=== PATIENT | female | born 2000 | race Hispanic/Latino ===

== ENCOUNTER 2020-12-25 14:51 | Outpatient (CLI) | payer MEDICAID, SELFPAY ==
--- NOTE | ~2020-12-25 | US_ITS ---
EXAMINATION: US OB <= 14 weeks fetus DATE: 12/25/2020 15:30 INDICATION: Encounter for supervision of normal first trimester TECHNIQUE: Real-time pelvic transabdominal and transvaginal ultrasound was performed. COMPARISON: None. FINDINGS: The uterus measures 12.8 x 6.2 x 8.7 cm. There is an intrauterine gestational sac. A yolk sac is identified. heart motion is identified measuring 169 beats per minute (bpm) by M-mode Do ppler. The crown rump length measures 3.7 cm , which correlates with an estimated gestational a ge of 10 weeks and 3 day(s) (+/-) 5 day(s). The ovaries are not visualized however no adnexal abnormality is seen. There is no free fluid in the pelvis. IMPRESSION: 1. Live intrauterine with an estimated gestational age of 10 weeks and 3 day(s) (+/-) 5 day (s) and an estimated delivery date of 07/20/2021. Reviewed, dictated and finalized at location A. IMPRESSION: 1. Live intrauterine with an estimated gestational age of 10 weeks an d 3 day(s) (+/-) 5 day(s) and an estimated delivery date of 07/20/2021.
== END 2020-12-25 14:52 | disposition home or self-care (01) ==
PROVIDERS: PCP Registered Nurse; Visit Provider Physician Assistant
DX: Z34.91 Encounter for supervision of normal pregnancy, unspecified, first trimester (principal); Z3A.10 10 weeks gestation of pregnancy
CPT/HCPCS: 76801

== ENCOUNTER 2021-02-23 14:26 | Outpatient (CLI) | payer OTHER, SELFPAY ==
--- NOTE | ~2021-02-23 | US_ITS ---
EXAMINATION: US OB follow up DATE: 02/23/2021 15:02 INDICATION: Encounter for supervision of normal during second trimester. TECHNIQUE: Real-time ultrasound of the pelvis was performed. The interpreting radiologist was not pre sent for the study. COMPARISON: 12/25/2020 FINDINGS: There is a single living fetus in vertex presentation. The placenta is posterior. heart rate i s 157 beats per minute (bpm). The amniotic fluid index is 11.5 cm, which is normal (5th%-95%: 9.0-20 .7 cm at 19 weeks estimated gestational age). The following biometric data were obtained: BPD: 4.4 cm -> 19 weeks 1 days Head circumference: 6.2 cm -> 19 weeks 0 days Abdominal circumference: 14.6 cm -> 20 weeks 0 days Femur length: 3.2 cm -> 19 weeks 6 days These measurements are concordant. Head circumference to abdominal circumference ratio: 1.11 (normal range 1.08-1.26). Estimated weight: 314 g (+/-) 47 g or 11 oz. (+/-) 2 oz. IMPRESSION: 1. Single living fetus in vertex presentation with heart rate of 157 bpm. 2. Normal amniotic fluid index of 11.5 cm. 3. Estimated weight is 88th percentile by Hadlock criteria when 07/20/2021 is used as the estima jose date of delivery (CHRISTELLE). Please correlate with clinical information or earlier ultrasounds for mos t accurate CHRISTELLE. Reviewed, dictated and finalized at location A. IMPRESSION: 1. Single living fetus in vertex presentation with heart rate of 157 bpm. 2. Normal amniotic fluid index of 11.5 cm. 3. Estimated weight is 88th percentile by Hadlock criteria when 07/20/2021 is used as the estimated date of delivery (CHRISTELLE). Please correlate with clinica l information or earlier ultrasounds for most accurate CHRISTELLE.
== END 2021-02-23 14:27 | disposition home or self-care (01) ==
PROVIDERS: PCP Registered Nurse; Visit Provider Physician Assistant
DX: Z34.92 Encounter for supervision of normal pregnancy, unspecified, second trimester (principal); Z3A.00 Weeks of gestation of pregnancy not specified
CPT/HCPCS: 76816

== ENCOUNTER 2021-04-21 10:06 | Outpatient (CLI) | payer OTHER, SELFPAY ==
--- NOTE | ~2021-04-21 | US_ITS ---
EXAMINATION: US OB follow up DATE: 04/21/2021 10:51 INDICATION: Growth assessment. TECHNIQUE: Real-time ultrasound of the pelvis was performed. COMPARISON: Ultrasound 02/23/2021, 12/25/2020 FINDINGS: There is a single living fetus in vertex presentation. The placenta is posterior and fundal. h eart rate is 153 beats per minute (bpm). The amniotic fluid index is 16.7 cm, which is normal. The following biometric data were obtained: Biparietal diameter (BPD): 6.8 cm; head circumference (HC): 26.6 cm; abdominal circumference (AC): 23 .9 cm; femur length (FL): 5.4 cm. These measurements are concordant. Estimated weight is 1221 g +/- 183 g, which correlates with 85th percentile when 07/20/21 is use d as estimated date of delivery. As single measurements, these parameters are each equal to the following estimated gestational ages: BPD: 27 weeks 4 days. HC: 28 weeks 6 days. AC: 28 weeks 1 days. FL: 28 weeks 5 days. estimated gestational age based solely on measurements from this exam is 28 weeks 2 days +/- 2 weeks 0 days. IMPRESSION: 1. Single living fetus in vertex presentation. 2. Estimated weight is 1221 g +/- 183 g, which correlates with 85th percentile when 07/20/21 is used as estimated date of delivery. Reviewed, dictated and finalized at location A. IMPRESSION: 1. Single living fetus in vertex presentation. 2. Estimated weight is 1221 g +/- 183 g, which correlates with 85th perc entile when 07/20/21 is used as estimated date of delivery.
== END 2021-04-21 10:07 | disposition home or self-care (01) ==
PROVIDERS: PCP Registered Nurse; Visit Provider Physician Assistant
DX: Z34.92 Encounter for supervision of normal pregnancy, unspecified, second trimester (principal); Z3A.28 28 weeks gestation of pregnancy
CPT/HCPCS: 76816

== ENCOUNTER 2021-06-08 14:42 | Outpatient (CLI) | payer OTHER, SELFPAY ==
--- NOTE | ~2021-06-08 | US_ITS ---
EXAMINATION: US OB follow up DATE: 06/08/2021 15:21 INDICATION: Growth assessment during third trimester TECHNIQUE: Real-time ultrasound of the pelvis was performed. The interpreting radiologist was not pre sent for the study. COMPARISON: 04/21/2021 and 12/25/2020 FINDINGS: There is a single living fetus in vertex presentation. The placenta is fundal. heart rate is 1 65 beats per minute (bpm). The amniotic fluid index is 14.9 cm, which is normal (5th%-95%: 8.1-24.8 cm at 34 weeks estimated gestational age). The following biometric data were obtained: BPD: 8.4 cm -> 33 weeks 5 days Head circumference: 32.1 cm -> 36 weeks 1 days Abdominal circumference: 32.8 cm -> 36 weeks 5 days Femur length: 7.2 cm -> 36 weeks 4 days These measurements are concordant. Head circumference to abdominal circumference ratio: 0.98 (normal range 0.93-1.08). Estimated weight: 2902 g (+/-) 435 g or 6 lbs. 6 oz. (+/-) 15 oz. IMPRESSION: 1. Single living fetus in vertex presentation with heart rate of 165 bpm. 2. Normal amniotic fluid index of 14.9 cm. 3. Estimated weight is 96th percentile by Hadlock criteria when 07/20/2021 is used as the estima jose date of delivery (CHRISTELLE) based upon earliest ultrasound performed at this institution on 12/25/2020. Please correlate with clinical information or earlier ultrasounds for most accurate CHRISTELLE. Reviewed, dictated and finalized at location A. IMPRESSION: 1. Single living fetus in vertex presentation with heart rate of 165 bpm. 2. Normal amniotic fluid index of 14.9 cm. 3. Estimated weight is 96th percentile by Hadlock criteria when 07/20/2021 is used as the estimated date of delivery (CHRISTELLE) based upon earliest ultrasound performed at this institution on 12/25/2020. Please correlate with clinical info rmation or earlier ultrasounds for most accurate CHRISTELLE.
== END 2021-06-08 14:43 | disposition home or self-care (01) ==
LOC: ANHIMG 14:52
PROVIDERS: PCP Registered Nurse; Visit Provider Physician Assistant
DX: Z34.93 Encounter for supervision of normal pregnancy, unspecified, third trimester (principal); Z3A.00 Weeks of gestation of pregnancy not specified
CPT/HCPCS: 76816

== ENCOUNTER 2021-07-16 18:15 | Inpatient (IN) | payer OTHER, SELFPAY ==
[2021-07-16] VITALS (8 sets, daily range): BP systolic 104–122; BP diastolic 52–72; PULSE 68–75; TEMP 36.3–36.8
[2021-07-16 20:26] LABS: Basophils Percent Auto 0.4 % (0.2-1.2); Eosinophils Absolute Auto 0.1 K/mm3 (0-0.3); Hematocrit 36.7 % (37.0-47.0); Hemoglobin 12.6 g/dL (12.0-15.0); Immature Granulocyte Absolute 0.11 K/mm3 (0.00-0.031); Immature Granulocyte Percent A 1.3 % (0-0.5); Lymphocytes Absolute Auto 2.32 K/mm3 (0.9-3.2); Mean Corpuscular HGB Conc 34.3 g/dl (32-36); Mean Corpuscular Hemoglobin 33.2 pg (26-34); Mean Corpuscular Volume 96.8 fl (80-100); Mean Platelet Volume 11.4 fl (7.4-10.4); Monocytes Absolute Auto 0.8 K/mm3 (0.1-0.6); Monocytes Percent Auto 10.1 % (2.6-8.5); Neutrophils Absolute Auto 4.9 K/mm3 (1.3-6.7); Neutrophils Percent Auto 59.2 % (45.5-73.1); Platelet Count Result 142 k/mm3 (150-375); Red Blood Count 3.79 M/mm3 (4.2-5.4); White Blood Count 8.3 K/mm3 (4.5-10.0)
--- NOTE | 2021-07-16 21:10 | LDADM ---
This patient, Evon Barriga, was admitted to Labor/Delivery/Recovery 103 on 07/16/21 at 18:15. Plans for labor, pain management and were discussed with patient. Patient/family oriented to hospital policies and general routines including ID bracelet, bed and alarms, visiting hours, pain management, procedures, bathroom and other care routines, personal items, smoking policy, room service/diet and guest tray routines, security routines, and visiting hours. Patient/Family are encouraged to report perceived risks to care and to ask questions if they do not understand what they are told or what they should do. See OBIX for further documentation.
--- NOTE | 2021-07-16 22:05 | WPDANESEPP ---
Anes - Eval Pre Procedure Procedure: labor epidural Date/Time: 07/16/21 22:05 Surgeon: malaika Preop Diagnosis: pain during labor Pre Op Diagnosis: Leaking Patient Data Age: 21 Gender: F Height: Weight: 79 kg Last Vital Signs Temp 36.4 C L 07/16/21 21:00 Pulse 71 07/16/21 20:46 BP 104/65 07/16/21 20:46 Allergies Allergy/AdvReac Type Severity Reaction Status Date / Time No Known Allergies Allergy Verified 07/16/21 19:56 Laboratory Tests 07/16/21 07/16/21 07/16/21 20:09 20:09 20:09 WBC 8.3 K/mm3 K/mm3 (4.5-10.0) RBC 3.79 M/mm3 L M/mm3 (4.2-5.4) Hgb 12.6 g/dL g/dL (12.0-15.0) Hct 36.7 % L % (37.0-47.0) MCV 96.8 fl fl (80-100) MCH 33.2 pg pg (26-34) MCHC 34.3 g/dl g/dl (32-36) RDW 14.0 % % (11.5-14.5) Plt Count 142 k/mm3 L k/mm3 (150-375) MPV 11.4 fl H fl (7.4-10.4) Immature Gran % (Auto) 1.3 % H % (0-0.5) Neut % (Auto) 59.2 % % (45.5-73.1) Lymph % (Auto) 28.0 % % (18.3-44.2) [facility] % (Auto) 10.1 % H % (2.6-8.5) Eos % (Auto) 1.0 % % (0-4.4) Baso % (Auto) 0.4 % % (0.2-1.2) Lymph # (Auto) 2.32 K/mm3 K/mm3 (0.9-3.2) [facility] # (Auto) 0.8 K/mm3 H K/mm3 (0.1-0.6) Eos # (Auto) 0.1 K/mm3 K/mm3 (0-0.3) Baso # (Auto) 0.0 K/mm3 K/mm3 (0.0-0.1) Abs Immat Gran (auto) 0.11 K/mm3 H K/mm3 (0.00-0.031) Absolute Neuts (auto) 4.9 K/mm3 K/mm3 (1.3-6.7) Absolute Nucleated RBC 0.0 K/mm3 K/mm3 (0.0-0.012) Nucleated RBC % 0.0 % % (0.0-0.2) RPR Pending Blood Type O Positive Antibody Screen Negative Patient hx anesthesia problems: none Family hx anesthesia problems: none Results Review: All pre-operative results and documents have been reviewed as part of the pre-operative evaluation. 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
[2021-07-17] VITALS (88 sets, daily range): BP systolic 90–145; BP diastolic 50–82; PULSE 32–138; RESP 16–20; TEMP 36.4–37.4; O2SAT 77–100
[2021-07-17] MEDS: AMPICILLIN 2 GM/NS 100 ML 2 GM/100 ML BAG IVPB (00:12)
[2021-07-17] MEDS: LACTATED RINGERS 1,000 ML 125 ML IV CONT ×2 (00:13→05:04)
[2021-07-17] MEDS: OXYTOCIN 30 UNITS/NS 500 ML 30 UNITS/500 ML BAG IV CONT (02:45)
[2021-07-17] MEDS: AMPICILLIN 1 GM/NS 50 ML 1 GM/50 ML BAG IVPB (04:31)
--- NOTE | 2021-07-17 07:59 | PM.IMHP ---
H&P: HPI History of Present Illness Date/Time: 07/17/21 07:59 21 y/o F presenting To [facility] [place] for woman with complaints of spontaneous rupture membranes 24 hours previous to admission presented in the evening on 07/16/21 at 39w4d. spontaneous onset of labor vic every 2 minutes in active labor. Now 7 cm S morning at 6:00 a.m. went to complete by 8:00 a.m.. Now beginning in 2nd stage of labor. complicated by MTHFR and h/o macrosomal infant (following [facility]). Patient had a previous delivery complicated by 2 minute shoulder dystocia at [address] [place] [address] in [place] and only the baby was 9 lb 15 oz. This baby's estimated weight is 6 lb 15 oz. Patient has an epidural anesthesia and is comfortable she desires to breast and bottle feed and she is having a boy circumcision is not desired and she will be using Nexplanon for control. She understands her condition procedure and risks involved she understands the risk of shoulder dystocia and hemorrhage and she agrees to proceed Chief Complaint: spontaneous onset of labor spontaneous rupture membranes term Review of Systems Review of Systems: All systems reviewed & are unremarkable except as noted in HPI and below Constitutional: Constitutional: Reports no additional constitutional complaints Eyes: Eyes: Reports no additional eye complaints ENT: Reports system reviewed and no additional complaints, except as documented Cardiovascular: Cardiovascular: Reports no additional cardiovascular complaints Respiratory: Respiratory: Reports no additional respiratory complaints Gastrointestinal: Gastrointestinal: Reports no additional gastrointestinal complaints Genitourinary: Genitourinary: Reports no additional female genitourinary complaints Musculoskeletal: Musculoskeletal: Reports no additional musculoskeletal complaints Integumentary/Breasts: Skin/Breast: Reports system reviewed and no additional complaints, except as docu Neurologic: Reports system reviewed and no additional complaints, except as documented Psychiatric: Psychiatric: Reports no additional psychiatric complaints Endocrine: Endocrine: Reports no additional endocrine complaints Hematologic/Lymphatic: Hematologic/Lymphatic: Reports no additional hematologic/lymphatic complaints Allergic/Immunologic: Allergic/Immunologic: Reports no additional allergic/immunologic complaints [facility] Past Medical History Medical History Congenital atresia of external auditory canal History of macrosomia in infant in prior , currently History of shoulder dystocia in prior Homozygous MTHFR mutation C677T Surgical History Surgical History (Updated 07/17/21 @ 08:08 by Larry Tran MD) History of cochlear implant left ear 2019 Family History Family History Other Diabetes mellitus Heart disease Hypertension Social History Social History Smoking status: Never smoker Alcohol intake: never Substance use: never Living arrangements: with family Occupation/Education: unemployed Gender identity (if verbalized by the patient): Female Sexual Orientation (if Verbalized by the Patient): Straight or Heterosexual Spiritual care concerns: No Agree to blood products: Yes Meds Home Medications and Allergies Home Medications Medication Instructions Recorded Confirmed Type vit-ferrous sulfat-FA 1 tablet PO DAILY 07/17/21 07/17/21 History [] Allergies Allergy/AdvReac Type Severity Reaction Status Date / Time No Known Allergies Allergy Verified 07/16/21 19:56 Vital Signs Vital Signs - 24 hr 07/16/21 19:00 07/16/21 19:46 07/16/21 20:01 Temperature 97.4 F L Pulse Rate 69 75 Blood Pressure 122/72 119/70 Pulse O
--- NOTE | 2021-07-17 08:04 | P.HPUP_ITS ---
History and Physical Update Update Date/Time: 07/17/21 08:04 History and Physical has been reviewed, including an updated exam of the patient. There are NO changes in the patient's condition. Risks, benefits, and alternatives have been discussed and questions answered. Patient agrees to proceed with procedure. 21 y/o F presenting To [facility] for woman with complaints of spontaneous rupture membranes 24 hours previous to admission presented in the evening on 07/16/21 at 39w4d. spontaneous onset of labor vic every 2 minutes in active labor. Now 7 cm S morning at 6:00 a.m. went to complete by 8:00 a.m.. Now beginning in 2nd stage of labor. complicated by MTHFR and h/o macrosomal infant (following [facility]). Patient had a previous delivery complicated by 2 minute shoulder dystocia at [address] [place] [address] in [place] and only the baby was 9 lb 15 oz. This baby's estimated weight is 6 lb 15 oz. Patient has an epidural anesthesia and is comfortable she desires to breast and bottle feed and she is having a boy circumcision is not desired and she will be using Nexplanon for control. She understands her condition procedure and risks involved she understands the risk of shoulder dystocia and hemorrhage and she agrees to proceed
--- NOTE | 2021-07-17 08:22 | PM.OBPRVD ---
OB - Delivery Note Procedure Delivery date: 07/17/21 Procedure: normal spontaneous vertex vaginal delivery a viable male infant and placenta Intrapartal events: None Induction method: none Delivery monitor: external FHT and external uterine Route of delivery: Episiotomy description: None Laceration Description: None Specimen: Yes ( placenta, cord blood, cord blood gases) Quantitative Blood Loss (ml): 150 Anesthesia type: Epidural Disposition: floor Complications: none Narrative: complete cervical dilation normal spontaneous vertex vaginal delivery a viable male infant over an intact perineum with easy delivery of the anterior shoulder and delivery of the infant successfully placed on the maternal abdomen cord clamped and cut cord gases obtained cord blood obtained placenta delivered intact a three-vessel cord uterus contracted well Pitocin given intravenously. Counts correct no sponges in the vagina no fistula sphincters intact [place] Baby Date of : 07/17/21 Time of : 08:16 Weeks of gestation at delivery: 39 gender: Male ( Blair) presentation: vertex position: Left Occiput Anterior Placenta delivery description: Spontaneous and Normal Configuration cord vessel description: 3 Vessels score one minute: 9 score five minutes: 9 Narrative: normal spontaneous vaginal delivery spontaneous respirations and cry normal transition Apgars 9 and 9 taken to the nursery in stable condition normal exam.
[2021-07-17] MEDS: OXYTOCIN 30 UNITS/NS 500 ML 30 UNITS/500 ML BAG 125 UNITS IV CONT (08:48)
[2021-07-17] MEDS: BENZOCAINE 20% AER SPR (*SP) 56 GM CAN 1 SPRAY TOPICAL (10:44)
[2021-07-17] MEDS: WITCH HAZEL 40 PADS 1 PAD TOPICAL (10:44)
[2021-07-17] MEDS: IBUPROFEN 600 MG TABLET PO ×3 (10:44→23:08)
[2021-07-17] MEDS: DOCUSATE SODIUM 100 MG CAPSULE PO (17:46)
[2021-07-18 03:45] VITALS: BP 99/55; PULSE 66; RESP 18; TEMP 36.9; O2SAT 99
[2021-07-18 04:10] LABS: Hematocrit 31.9 % (37.0-47.0); Hemoglobin 10.9 g/dL (12.0-15.0)
--- NOTE | 2021-07-18 08:46 | PM.OBDSVD ---
DS: Admitting Diagnosis Discharge Date 07/18/2021 Admitting Diagnosis OB - DS: Summary OB Procedures : None OB Procedures Intrapartum: Spontaneous Vag Delivery OB Procedures: : None Time Spent with Patient Time attestation: Total time spent providing and/or coordinating discharge services: DS: Data Data Completed and Pending Labs on day of discharge: Labs from last 24 hours 07/18/21 03:42 Hgb 10.9 L Hct 31.9 L Discharge Plan Discharge Attending physician on discharge: Larry Tran Discharging Clinician: Larry Tran Anticipated Discharge Date/Time: 07/18/21 08:28 Patient Disposition: Home, Self-Care Activity: may shower, unlimited and may drive after 2 weeks Diet: as tolerated and regular Discharge Instructions: routine Patient Instructions: Antibiotic Form Stand Alone Forms: General Discharge Information Follow-up/Referrals: Larry Tran MD [Physician] - 3 Weeks Discharge Medications: New ibuprofen 600 mg Tablet 600 mg PO Q6H Qty: 90 RF: 1 Continued 27 mg iron- 0.8 mg Tablet 1 tablet PO DAILY RF: 0 Date of admission: 07/16/21 18:15 Primary Care Provider: KulwantEliza Admitting Provider: Larry Tran Attending physician on admission: Larry Tran Condition: Stable
[2021-07-18 08:50] VITALS: BP 99/54; PULSE 64; RESP 16; TEMP 36.7
--- NOTE | 2021-07-18 12:00 | PC.NURSE ---
Patient and her partner were instructed to view the discharge video Mother & Baby Care, The First Two Weeks online, in Hebrew. Patient was given the opportunity and encouraged to ask questions. Patient verbalized understanding of information shared and has been given the mother/baby guide for home reference.
--- NOTE | 2021-07-18 13:09 | WPDANLDPN2 ---
Anes-Prog Note L&D Date/Time: 07/18/21 13:09 Comfortable throughout: labor and delivery Neuraxial method: epidural Epidural/Spinal procedure site: clean & non-tender Neuro status: Neuro function grossly intact. Cardiovascular status: normal Respiratory status: normal Airway patency: baseline Mental status: baseline Post-Op hydration status: normal Vital Signs: Last Vital Signs Temp 36.7 C 07/18/21 08:50 Pulse 64 07/18/21 08:50 Resp 16 07/18/21 08:50 BP 99/54 L 07/18/21 08:50 Pulse Ox 99 07/18/21 03:45 Pain score (VAS): 09/28 Post-procedural complaints: none Patient feedback: Patient satisfied with anesthetic care.
--- NOTE | 2021-07-18 13:20 | PC.NURSE ---
Patient discharge instructions reviewed in detail with the [employer] translation line. Patient and partner given the opportunity to ask questions.
[2021-07-18 15:38] LABS: Rapid Plasma Reagin Non-Reactive (NonReactive)
[2021-07-20 08:20] VITALS: BP 113/65; PULSE 67; RESP 18; TEMP 36.9
--- NOTE | 2021-07-20 08:25 | PM.OBDSVD ---
DS: Admitting Diagnosis Discharge Date 07/18/2021 Admitting Diagnosis (1) Term : Code(s): Z34.90 - Encounter for supervision of normal , unspecified, unspecified trimester Status: Acute (2) Spontaneous rupture of membranes: Status: Acute (3) Spontaneous onset of labor: Status: Acute (4) Homozygous MTHFR mutation C677T: Code(s): Z15.89 - Genetic susceptibility to other disease Status: Acute (5) History of shoulder dystocia in prior : Code(s): Z87.59 - Personal history of other complications of , childbirth and the puerperium Status: Acute (6) History of macrosomia in in prior , currently : Code(s): O09.299 - Supervision of with other poor reproductive or obstetric history, unspecified trimester Status: Acute DS: Discharge Diagnosis Discharge Diagnosis (1) Term delivered: Code(s): O80 - Encounter for full-term uncomplicated delivery Status: Acute (2) Spontaneous rupture of membranes: Status: Acute (3) Spontaneous onset of labor: Status: Acute (4) Homozygous MTHFR mutation C677T: Code(s): Z15.89 - Genetic susceptibility to other disease Status: Acute (5) History of shoulder dystocia in prior : Code(s): Z87.59 - Personal history of other complications of , childbirth and the puerperium Status: Acute (6) History of macrosomia in in prior , currently : Code(s): O09.299 - Supervision of with other poor reproductive or obstetric history, unspecified trimester Status: Acute OB - DS: Summary Hospital Course Time spent discussing smoking cessation with patient: 3 to 10 minutes OB Procedures : Ultrasound OB Procedures Intrapartum: Spontaneous Vag Delivery and GBS prophylaxis OB Procedures: : None Peripartum Data Delivery Method: Natural Vaginal Laceration Description: None Episiotomy description: None complications: none [place] 1: Gender: Male ( [place]) Disposition of : home Status at Discharge Cognitive/behavioral status at discharge: normal Functional status at discharge: independent ambulation Overall status at discharge: patient is back to baseline Time Spent with Patient Time attestation: Total time spent providing and/or coordinating discharge services: Time spent: Less than 30 minutes Exam Const: General: cooperative, healthy appearing, comfortable, no acute distress, well developed, alert, awake and Physically active Nutritional Appearance: average body habitus Orientation/consciousness: patient oriented x3 Limitations: no limitations HENMT: Head: normal to inspection Eyes: General: appearance normal, both eyes and all related structures Neck: Neck: normal visual inspection Chest: Chest palpation & inspection: normal inspection of the chest Resp: Effort & Inspection: normal respiratory effort Cardio: Rate: regular rate Rhythm: regular rhythm GI: Inspection: normal to inspection : External Female Exam: normal external appearance Bimanual exam- vagina & uterus: non-tender Back/Spine/Pelvis: Back: no CVA tenderness Skin: General skin exam: normal color Neuro: General: patient oriented x3, gait normal, tone normal and moves all extremities Extrem: General: normal to inspection Psych: Appearance: grossly normal Mental Status: mental status grossly normal Speech and movement: Normal speech and movement present Affect: normal affect Attitude: cooperative Thought process: Normal thought process present Thought content: Yes Normal thought content present Insight: Good insight present (Psych) Judgement: Good judgement present (Psych) DS: Data Data Completed and Pending Labs on day of discharge: Labs from last 24 hours 07/16/21 07/16/21 07/16/21 20:09 20:09 20:09 WBC 8.3 RBC
== END 2021-07-18 14:06 | disposition home or self-care (01) | DRG 560 ==
LOC: ANHLDR 07-17 10:39 → ANHOB2 07-17 11:30
PROVIDERS: Admitting Provider Obstetrics & Gynecology; PCP Registered Nurse; Visit Provider Obstetrics & Gynecology
DX: O42.92 Full-term premature rupture of membranes, unspecified as to length of time between rupture and onset of labor (principal); Z37.0 Single live birth; Z3A.39 39 weeks gestation of pregnancy; O99.284 Endocrine, nutritional and metabolic diseases complicating childbirth; E72.12 Methylenetetrahydrofolate reductase deficiency; Q16.1 Congenital absence, atresia and stricture of auditory canal (external); O99.892 Other specified diseases and conditions complicating childbirth; Z87.59 Personal history of other complications of pregnancy, childbirth and the puerperium
CPT/HCPCS: 36415; 84112; 85014; 85018; 85025; 86592; 86850; 86900; 86901; 88307; A9270; J0290; J2590; J2795; J7120